=== PATIENT | female | born 1980 | race Caucasian/White ===

== ENCOUNTER 2018-11-16 19:57 | Emergency (ER) | payer OTHER ==
[~2018-11-16] VITALS: Ht 154.9 cm; Wt 58.1 kg
--- NOTE | 2018-11-16 20:08 | NUR ---
Arrival: Pt ambulated to ED 8, GONZALEZ*4, no acute distress. Assessment as charted. EDP notified of pt.
[2018-11-16 20:24] VITALS: BP 202/139
--- NOTE | 2018-11-16 20:24 | ER.PDOC ---
General Chief Complaint: Requesting Medical Care Stated Complaint: HEADACHES,NECK PAIN Time seen by MD: 20:21 Source: patient Exam Limitations: no limitations History of Present Illness Initial Comments Headache for 3 Months. Used to take Lisinopril but ran out Months ago and had not been able to see a Provider because she can not afford it. Severity/Quality: moderate Prior Headaches/Recent Trauma: chronic headaches Associated Symptoms: denies symptoms Allergies: Coded Allergies: morphine (Verified Allergy, Mild, 11/20/13) Past Medical History Medical History: other (HTN) Surgical History: Review of Systems Constitutional: no symptoms reported Ears, Nose, Mouth, Throat: no symptoms reported Respiratory: no symptoms reported Cardiovascular: no symptoms reported Gastrointestinal: no symptoms reported All Other Systems: Reviewed and Negative Physical Exam General Appearance: No Apparent Distress, WD/WN Head/Eyes: eyes nml inspection Neck: nml inspection, Supple Cardiovascular: Normal Peripheral Pulses, Regular Rate, Rhythm, No Edema, No Gallop, No JVD, No Murmur Respiratory: chest non-tender, lungs clear, normal breath sounds, no respiratory distress, no accessory muscle use Gastrointestinal: Normal Bowel Sounds, No Organomegaly, No Pulsatile Mass, Non Tender, Soft Back: Normal Inspection, No CVA Tenderness, No Vertebral Tenderness Extremities: Normal Range of Motion, Non-Tender, Normal Inspection, No Pedal Edema, No Calf Tenderness, Normal Capillary Refill Psychiatric: Alert, Oriented x 3 Cranial Nerves: Normal Hearing, Normal Speech, PERRL Motor/Sensory: No Motor Deficit, No Sensory Deficit, No Pronator Drift, Negative Babinski's Sign Skin: Warm/Dry, Normal Color Results/Orders Results/Orders Orders - APARNA PAK MD Cbc With Auto Diff (11/16/18 20:20) Comprehensive Metabolic Panel (11/16/18 20:20) Ct Head Wo Contrast (11/16/18 20:20) Labetalol Hcl (Trandate) (11/16/18 20:45) Labetalol Hcl (Trandate) (11/16/18 21:11) Vital Signs Date Time Temp Pulse Resp B/P (MAP) Pulse Ox O2 Delivery O2 Flow Rate FiO2 11/16/18 20:24 98.1 79 20 202/139 (160) 98 Room Air 98.1 11/16/18 20:08 98.1 72 18 98 Room Air 98.1 11/16/18 20:08 98.1 79 20 98.1 Administered Medications Medications (Trade) Dose Ordered Sig/Elvira Route PRN Reason Start Time Stop Time Status Last Admin Dose Admin Labetalol HCl (Trandate) 20 mg STAT STAT IV 11/16/18 20:45 11/16/18 20:47 DC 11/16/18 21:17 20 MG Laboratory Tests Test 11/16/18 20:30 White Blood Count 8.4 10^3/uL (4.5-11.0) Red Blood Count 4.74 10^6/uL (4.00-5.20) Hemoglobin 15.2 g/dL (12.0-15.0) H Hematocrit 44.0 % (36.0-46.0) Mean Corpuscular Volume 92.8 fL (78-100) Mean Corpuscular Hemoglobin 32.1 pg (26-34) Mean Corpuscular Hemoglobin Concent 34.5 g/dL (33-37) Red Cell Distribution Width 13.8 % (11.5-14.5) Platelet Count 313 10^3/uL (150-400) Mean Platelet Volume 8.5 fL (7.8-11.0) Neutrophils (%) (Auto) 63.5 % (41.0-85.0) Lymphocytes (%) (Auto) 23.1 % (24.0-44.0) L Monocytes (%) (Auto) 6.2 % (5.0-12.0) Neutrophils # (Auto) 5.3 10^3/uL (1.8-7.7) Lymphocytes # (Auto) 1.9 10^3/uL (1.0-4.8) Monocytes # (Auto) 0.5 10^3/uL (0.3-0.8) Absolute Immature Granulocyte (auto 0.03 10^3 u/L (0-2) Immature Granulocytes % 0.40 % (0.00-0.50) Eosinophils % 5.6 % (0.0-5.0) H Basophils % 1.2 % (0.0-0.2) H Basophils # 0.1 10^3/uL (0.0-0.1) Eosinophil Count 0.5 10^3/uL (0.0-0.2) H Sodium Level 143 mmol/L (132-145) Potassium Level 3.3 mmol/L (3.6-5.2) L Chloride Level 104.0 mmol/L (96-109) Carbon Dioxide Level 32.5 mmol/L (20.0-32) H Anion Gap 9.8 Blood Urea Nitrogen 14 mg/dL (7-18) Creatinine 1.09 mg/dL (0.59-1.40) Estimated GFR () 68.3 (>/=60) BUN/Creatinine Ratio 12.0 Glucose Level 82 mg/dL (70-110) Calcium Level 9.2 mg/dL (8.4-10.5) Total Bilirubin 0.5 mg/dL (0.2-1.0) Aspartate Amino Transferase (AST) 44 U/L (0-35) H Alanine Aminotransferase (ALT) 49 U/L (12-78) Alkaline Phosphatase 74 U/L (50-136) Total Protein 7.4 g/dL (6.4-8.2) Albumin 3.7 g/dL (3.4-5.0) Globulin 3.[address] abdomen/pelvis: No acute intracranial abnormality. 2. Paranasal sinus disease. Departure Time of Disposition: 21:43 Disposition: 01 HOME, SELF-CARE Impression: Primary Impression: Hypertensive urgency Additional Impression: Sinusitis Qualified Codes: J32.9 - Chronic sinusitis, unspecified Condition: Stable Referrals: PCP,UNKNOWN (PCP) PRIMARY CARE PROVIDER Additional Instructions: Augmentin Lisinopril Keep a blood pressure diary F/U with your PCP in 2-3 days Duration or Time Spent with Pa: 60 mins APARNA PAK MD Nov 16, 2018 20:24
--- NOTE | 2018-11-16 20:38 | NUR ---
Rad Patient is back from Radiology
[2018-11-16 20:40] LABS: BASOPHIL # 0.1 10^3/uL (0.0-0.1); BASOPHIL % 1.2 % (0.0-0.2); EOSINOPHIL # 0.5 10^3/uL (0.0-0.2); EOSINOPHIL % 5.6 % (0.0-5.0); HEMOGLOBIN 15.2 g/dL (12.0-15.0); LYMPHOCYTES # 1.9 10^3/uL (1.0-4.8); LYMPHOCYTES % 23.1 % (24.0-44.0); MEAN CELL HGB 32.1 pg (26-34); MEAN CELL HGB CONCENTRATION 34.5 g/dL (33-37); MEAN CORP VOLUME 92.8 fL (78-100); MEAN PLATELET VOLUME 8.5 fL (7.8-11.0); MONOCYTES # 0.5 10^3/uL (0.3-0.8); MONOCYTES % 6.2 % (5.0-12.0); NEUTROPHIL # 5.3 10^3/uL (1.8-7.7); NEUTROPHILS % 63.5 % (41.0-85.0); RED CELL DISTRIBUTION WIDTH 13.8 % (11.5-14.5); WHITE BLOOD CELL 8.4 10^3/uL (4.5-11.0)
--- NOTE | 2018-11-16 20:44 | DIREP ---
PROCEDURE:CT HEAD WITHOUT CONTRAST TECHNIQUE:Axial cuts were obtained through the head, without intravenous contrast material. The images were viewed at brain and bone settings. COMPARISON:None. INDICATIONS:Headache FINDINGS: VENTRICLES:Normal. CEREBRUM:Normal. No intracranial hemorrhage, large territory infarct or space-occupying mass. CEREBELLUM:Normal. BRAINSTEM:Normal. SKULL:Normal. SINUSES:Complete opacification of the right maxillary sinus with osseous hypertrophy consistent with chronic inflammatory changes. Severe right ethmoid, moderate right frontal and moderate left ethmoid and left sphenoid sinus mucosal thickening. No air-fluid levels. OTHER:None CONCLUSION: 1. No acute intracranial abnormality. 2. Paranasal sinus disease. Dictated by: Sakina Baker MD on 11/16/2018 at 08:40 PM
[2018-11-16 20:55] LABS: CALCIUM 9.2 mg/dL (8.4-10.5); CARBON DIOXIDE 32.5 mmol/L (20.0-32)
[2018-11-16] MEDS ORDERED: TRANDATE IV ONE (21:11)
[2018-11-16] MEDS: TRANDATE IV STA (21:17)
[2018-11-16 21:51] VITALS: BP 200/130
--- NOTE | 2018-11-16 22:00 | NUR ---
IV IV removed, Tip intact. Placed cottonball over IV site. Secured with coban. Instructed patient to remove coban on the arrival of home. Patient expressed understanding
[2018-11-16 22:03] VITALS: BP 200/130
== END 2018-11-16 22:01 | disposition home or self-care (01) ==
LOC: ER 19:57
DX: J32.9 Chronic sinusitis, unspecified (principal); I16.0 Hypertensive urgency; I10 Essential (primary) hypertension; Z88.5 Allergy status to narcotic agent
CPT/HCPCS: 36415; 70450; 80053; 85025; 96374; 99285; J3490